=== PATIENT | male | born 1960 ===

== ENCOUNTER 2018-10-25 18:06 | Emergency (ER) | payer SELFPAY ==
[2018-10-25 18:06] VITALS: BP 185/104; PULSE 69; RESP 20; TEMP 36.9; O2SAT 98; BMI 26.5
--- NOTE | 2018-10-25 19:35 | ED.RN ---
PT NO LONGER WANTING TO WAIT. WILL DRIVE TO [place]
== END 2018-10-25 19:35 ==
LOC: ED 20:23
PROVIDERS: Emergency Provider Emergency Medicine
DX: K08.9 Disorder of teeth and supporting structures, unspecified (principal)